=== PATIENT | female | born 1995 | race Caucasian/White ===

== ENCOUNTER 2025-09-30 17:39 | Emergency (ER) | payer OTHER ==
[~2025-09-30] VITALS: Ht 175.3 cm; Wt 74.8 kg
[2025-09-30 17:56] VITALS: TEMP 98.6
[2025-09-30 18:26] LABS: PLATELET COUNT (AUTO) 351 K/uL (150-450); RED BLOOD CELL COUNT(AUTO) 4.85 MIL/uL (4.0-5.2); RED CELL DISTRIBUTION WIDTH 13.5 % (11.5-15.0); WHITE BLOOD COUNT (AUTO) 8.0 K/uL (4.3-11.0)
[2025-09-30 18:31] LABS: CALCIUM, SERUM 9.5 mg/dL (8.5-10.1); CREATININE 0.8 mg/dL (0.6-1.3); SODIUM SERUM 140.0 mmol/L (136-145); UREA NITROGEN, BLOOD 13.0 mg/dL (7-18)
[2025-09-30 18:32] LABS: APPEARANCE,URINE CLEAR (CLEAR); BLOOD, URINE 2+ Ery/uL (NEGATIVE); LEUKOCYTE ESTERASE ,URINE NEGATIVE (NEGATIVE); NITRITE, URINE POSITIVE (NEGATIVE); UGLUCOSE NEGATIVE (NEGATIVE)
[2025-09-30 18:35] LABS: PREGNANCY TEST URINE QUAL NEGATIVE (NEGATIVE)
[2025-09-30 18:37] LABS: ASPARTATE AMINOTRANSFERASE 21.0 U/L (15-37); TOTAL PROTEIN, SERUM 7.7 g/dL (6.4-8.2)
[2025-09-30] MEDS ORDERED: ACETAMINOPHEN ES 500 MG TABLET ONE (18:43)
[2025-09-30] MEDS: ACETAMINOPHEN ES 500 MG TABLET PO ONE (18:46)
[2025-09-30 18:53] LABS: ADD URINE CULTURE YES
[2025-09-30] MEDS ORDERED: IBUP-1953 PO (19:09)
[2025-09-30] MEDS ORDERED: CEFP200T14 PO (19:09)
[2025-09-30] MEDS ORDERED: ONDA4TAB5 PO (19:11)
[2025-09-30 19:20] VITALS: BP 142/90; O2SAT 98
== END 2025-09-30 19:21 | disposition home or self-care (01) ==
LOC: ER 17:39
DX: N12 Tubulo-interstitial nephritis, not specified as acute or chronic (principal); N39.0 Urinary tract infection, site not specified
CPT/HCPCS: 36415; 80048-TC; 80076-TC; 81001; 83690-TC; 84703-TC; 85025-TC; 87086-TC